=== PATIENT | male | born 1990 | race Caucasian/White ===

== ENCOUNTER 2017-08-06 23:45 | Emergency (ER) | payer SELFPAY ==
[~2017-08-06] VITALS: Ht 175.3 cm; Wt 80.0 kg
[2017-08-06 23:53] VITALS: BP 134/62; PULSE 110; RESP 16; TEMP 98.7; O2SAT 96
[2017-08-07 02:39] VITALS: BP 134/63; PULSE 102; RESP 18; O2SAT 100
[2017-08-07 02:56] LABS: AUTOMATED NEUTROPHIL # 7.7 TH/MM3 (1.8-7.7); BASOPHIL # 0.1 TH/MM3 (0-0.2); BASOPHIL % 0.5 % (0.0-2.0); EOSINOPHIL % 0.3 % (0.0-4.0); HEMATOCRIT 41.3 % (39.0-51.0); HEMOGLOBIN 14.7 GM/DL (13.0-17.0); LYMPH % 20.8 % (9.0-44.0); LYMPHOCYTE # 2.2 TH/MM3 (1.0-4.8); MEAN CELL VOLUME 90.1 FL (80.0-100.0); MEAN CORPUSCULAR HEMOGLOBIN 32.2 PG (27.0-34.0); MEAN CORPUSCULAR HGB CONC 35.7 % (32.0-36.0); MEAN PLATELET VOLUME 8.1 FL (7.0-11.0); MONO % 4.6 % (0.0-8.0); MONOCYTE # 0.5 TH/MM3 (0-0.9); NEUT % 73.8 % (16.0-70.0); PLATELET COUNT 233 TH/MM3 (150-450); RED BLOOD COUNT 4.58 MIL/MM3 (4.50-5.90); RED CELL DISTRIBUTION WIDTH 13.2 % (11.6-17.2); WHITE BLOOD COUNT 10.4 TH/MM3 (4.0-11.0)
[2017-08-07 03:10] LABS: ALBUMIN 4.6 GM/DL (3.4-5.0); ALT (GPT) 35 U/L (12-78); AST (GOT) 17 U/L (15-37); BICARBONATE 31.3 MEQ/L (21.0-32.0); BLOOD UREA NITROGEN 12 MG/DL (7-18); CALCIUM 9.2 MG/DL (8.5-10.1); CHLORIDE 103 MEQ/L (98-107); CREATININE 0.96 MG/DL (0.60-1.30); GLOMERULAR FILTRATION RATE 94 ML/MIN (>89); GLUCOSE,RANDOM 105 MG/DL (74-106); SODIUM (NA) 142 MEQ/L (136-145)
[2017-08-07 03:12] LABS: ALKALINE PHOSPHATASE 83 U/L (45-117); TOTAL BILIRUBIN ADULT 0.3 MG/DL (0.2-1.0); TOTAL PROTEIN 8.5 GM/DL (6.4-8.2)
[2017-08-07 03:18] LABS: ACETAMINOPHEN LESS THAN 2.0 MCG/ML (10.0-30.0)
--- NOTE | 2017-08-07 04:23 | PD ---
HPI Chief Complaint: Suicide Ideation/Attempt Time Seen by Provider: 03:40 Travel History International Travel<30 days: No Contact w/Intl Traveler<30days: No Traveled to known affect area: No History of Present Illness HPI 27-year-old male presents voluntarily requesting psychiatric evaluation. Reports that he was recently discharged from detoxification from heroin addiction. He reports that he was at home today and he found some old heroin and he used it. Afterwards he reports that he was contemplating suicide and his drove him here for further evaluation. He denies any alcohol use. He denies any homicidal ideation, auditory or visual hallucinations. He has no other complaints at this time. [facility] Past Medical History Medical History: Denies Significant Hx Diminished Hearing: No Tetanus Vaccination: Unknown Influenza Vaccination: No Past Surgical History Surgical History: No Previous Surgery Social History Alcohol Use: No Tobacco Use: Yes Substance Use: Yes (herion) Allergies-Medications (Allergen,Severity, Reaction): Coded Allergies: clarithromycin (Verified Allergy, Severe, 08/06/17) HIVES Reported Meds & Prescriptions Reported Meds & Active Scripts Active No Active Prescriptions or Reported Medications Review of Systems Except as stated in HPI: all other systems reviewed are Neg Physical Exam Narrative GENERAL: Well-developed well-nourished male who is sleeping on initial examination, easily arousable. SKIN: Warm and dry. HEAD: Atraumatic. Normocephalic. EYES: Pupils equal and round. No scleral icterus. No injection or drainage. ENT: No nasal bleeding or discharge. Mucous membranes pink and moist. NECK: Trachea midline. No JVD. CARDIOVASCULAR: Regular rate and rhythm. No murmur appreciated. RESPIRATORY: No accessory muscle use. Clear to auscultation. Breath sounds equal bilaterally. GASTROINTESTINAL: Abdomen soft, non-tender, nondistended. Hepatic and splenic margins not palpable. MUSCULOSKELETAL: No obvious deformities. No clubbing. No cyanosis. No edema. NEUROLOGICAL: Awake and alert. No obvious cranial nerve deficits. Motor grossly within normal limits. Normal speech. PSYCHIATRIC: Appropriate mood and affect; insight and judgment normal. Data Data Last Documented VS Vital Signs Date Time Temp Pulse Resp B/P (MAP) Pulse Ox O2 Delivery O2 Flow Rate FiO2 08/07/17 02:39 102 18 134/63 (86) 100 Room Air 08/06/17 23:53 98.7 Orders Orders Complete Blood Count With Diff (08/07/17 02:33) Comprehensive Metabolic Panel (08/07/17 02:33) Psych Screen (08/07/17 02:33) Drug Screen, Random Urine (08/07/17 02:33) Alcohol (Ethanol) (08/07/17 02:33) Salicylates (Aspirin) (08/07/17 02:33) Tylenol (Acetaminophen) (08/07/17 02:33) Potassium Chloride (Kcl) (08/07/17 04:30) Labs Laboratory Tests Test 08/07/17 02:45 White Blood Count 10.4 TH/MM3 Red Blood Count 4.58 MIL/MM3 Hemoglobin 14.7 GM/DL Hematocrit 41.3 % Mean Corpuscular Volume 90.1 FL Mean Corpuscular Hemoglobin 32.2 PG Mean Corpuscular Hemoglobin Concent 35.7 % Red Cell Distribution Width 13.2 % Platelet Count 233 TH/MM3 Mean Platelet Volume 8.1 FL Neutrophils (%) (Auto) 73.8 % Lymphocytes (%) (Auto) 20.8 % Monocytes (%) (Auto) 4.6 % Eosinophils (%) (Auto) 0.3 % Basophils (%) (Auto) 0.5 % Neutrophils # (Auto) 7.7 TH/MM3 Lymphocytes # (Auto) 2.2 TH/MM3 Monocytes # (Auto) 0.5 TH/MM3 Eosinophils # (Auto) 0.0 TH/MM3 Basophils # (Auto) 0.1 TH/MM3 CBC Comment DIFF FINAL Differential Comment Blood Urea Nitrogen 12 MG/DL Creatinine 0.96 MG/DL Random Glucose 105 MG/DL Total Protein 8.5 GM/DL Albumin 4.6 GM/DL Calcium Level 9.2 MG/DL Alkaline Phosphatase 83 U/L Aspartate Amino Transf (AST/SGOT) 17 U/L Alanine Aminotransferase (ALT/SGPT) 35 U/L Total Bilirubin 0.3 MG/DL Sodium Level 142 MEQ/L Potassium Level 3.2 MEQ/L Chloride Level 103 MEQ/L Carbon Dioxide Level 31.3 MEQ/L Anion Gap 8 MEQ/L Estimat Glomerular Filtration Rate 94 ML/MIN Salicylates Level 2.0 MG/DL Acetaminophen Level LESS THAN 2.0 MCG/ML Ethyl Alcohol Level LESS THAN 3 MG/DL MDM Medical Decision Making Medical Screen Exam Complete: Yes Emergency Medical Condition: Yes Medical Record Reviewed: Yes Differential Diagnosis Substance-induced mood disorder, adjustment reaction, major depressive disorder , acute psychosis Narrative Course 27-year-old male presents voluntarily requesting psychiatric evaluation of suicidal ideations. Mental health screening discussed with the patient. Psychiatric screen ordered. The patient's potassium level slightly low, oral potassium chloride has been ordered. He is medically for psychiatric disposition. Diagnosis Primary Impression: Medical clearance for psychiatric admission Scripts No Active Prescriptions or Reported Meds Butch Appiah Aug 07, 2017 04:23
[2017-08-07] MEDS ORDERED: POTASSIUM CHLORIDE 20 MEQ CONTROLLED RELEASE TAB PO ONE (04:30)
[2017-08-07 07:54] VITALS: BP 102/51; PULSE 68; RESP 17; O2SAT 100
--- NOTE | 2017-08-07 12:22 | PD ---
History of Present Illness Chief Complaint: Suicide Ideation/Attempt Time Seen by Provider: 12:00 Travel History International Travel<30 Days: No Contact w/Intl Traveler<30days: No Known affected area: No Legal Status Legal Status: Voluntary History of Present Illness: History of Present Illness HPI 27-year-old, male, living with his and her parents, with no previous psychiatric history, history of substance use disorder, more specifically IV heroin and crack use, presents voluntarily requesting psychiatric evaluation. Reports that he was recently discharged from [facility] on August 04, for treatment of heroin addiction. He reports that he was at home today and he found some old heroin and he used it. Afterwards he reports that he was contemplating suicide and his drove him here for further evaluation. The patient did not make any attempt to harm himself. EMR is reviewed. No previous contact with [facility]. Patient is seen, he is awake, alert, oriented. Dressed in hospital gown with appropriate hygiene and grooming. His speech is clear, logical, normal rate and tone. Mood is euthymic There is no evidence of any hallucinations, no delusions and no paranoia. He states that he had been feeling anxious due to his behaviors which include his continued drug use. He also states that he was feeling " guilt and shame" over his relapse. " I said I wanted to kill myself in middle of argument with my ." He denies current suicidal or homicidal ideation, intent or plan. The patient states that he is ready to seek substance use treatment again and that he has already made calls to [facility] and he will be getting a bed there once it becomes available. PFSH Past Medical History Medical History: Denies Significant Hx Diminished Hearing: No Tetanus Vaccination: Unknown Influenza Vaccination: No Past Surgical History Surgical History: No Previous Surgery Psychiatric History Psychiatric History Hx Psychiatric Treatment: No previous psychiatric history. No previous suicide attempts. History of Inpatient Treatment: No Guns or firearms in home: No Social History for 7 years. Has a son who is 6-month-old. He is unemployed. Lives with his , his son and her parents. Hx Alcohol Use: No Hx Tobacco Use: Yes Hx Substance Use: Yes (herion) Substance Use Type: Crack, Heroin Hx of Substance Use Treatment: Yes (recently discharge from [facility] detox.) Family Psychiatric History Negative Allergies-Medications (Allergen,Severity, Reaction): Coded Allergies: clarithromycin (Verified Allergy, Severe, 08/06/17) HIVES Reported Meds & Prescriptions Reported Meds & Active Scripts Active No Active Prescriptions or Reported Medications Review of Systems Psychiatric: DENIES: Anxiety, Confusion, Mood changes, Depression, Hallucinations, Agitation, Suicidal Ideation, Homicidal Ideation, Delusions Except as stated in HPI: all other systems reviewed are Neg Mental Status Examination Appearance: Appropriate Consciousness: Alert Orientation: x4 Motor Activity: Normal gait Speech: Unremarkable Language: Adequate Fund of Knowledge: Adequate Attention and Concentration: Adequate Memory: Unremarkable Mood: Appropriate Affect: Appropriate Thought Process & Associations: Intact, Logical, Goal directed Thought Content: Appropriate Hallucination Type: None Suicidal Ideation: No Suicidal Plan: No Suicidal Intention: No Homicidal Ideation: No Homicidal Plan: No Homicidal Intention: No Insight: Fair Judgment: Impulsive MDM Medical Decision Making Medical Record Reviewed: Yes Assessment/Plan 27-year-old, male, living with his and her parents, with no previous psychiatric history, history of substance use disorder, more specifically IV heroin and crack use, presents voluntarily requesting psychiatric evaluation. Reports that he was recently discharged from [facility] on August 04, for treatment of heroin addiction. He reports that he was at home today and he found some old heroin and he used it. Afterwards he reports that he was contemplating suicide and his drove him here for further evaluation. The patient did not make any attempt to harm himself. Patient at this time is requesting treatment for his continued use of substances. He has already made necessary calls to [facility] and plans on being admitted again there once a bed becomes available. I have provided him with resources here including [facility] outpatient treatment for substance abuse. He accepted the referrals. At this time the patient does not present any evidence of unstable mental illness. This is substance use disorder. He is asking for help and has been making the calls to get the help he needs. The patient does not meet criteria for inpatient psychiatric treatment and wants to be discharge. Psychiatrically clear for discharge from the ED. Orders Orders Complete Blood Count With Diff (08/07/17 02:33) Comprehensive Metabolic Panel (08/07/17 02:33) Psych Screen (08/07/17 02:33) Drug Screen, Random Urine (08/07/17 02:33) Alcohol (Ethanol) (08/07/17 02:33) Salicylates (Aspirin) (08/07/17 02:33) Tylenol (Acetaminophen) (08/07/17 02:33) Potassium Chloride (Kcl) (08/07/17 04:30) Diet Regular Basic (08/07/17 Breakfast) Results Vital Signs Date Time Temp Pulse Resp B/P (MAP) Pulse Ox O2 Delivery O2 Flow Rate FiO2 08/07/17 07:54 68 17 102/51 (68) 100 Room Air 08/07/17 02:39 102 18 134/63 (86) 100 Room Air 08/06/17 23:53 98.7 110 16 134/62 (86) 96 Laboratory Tests Test 08/07/17 02:45 08/07/17 06:00 White Blood Count 10.4 Red Blood Count 4.58 Hemoglobin 14.7 Hematocrit 41.3 Mean Corpuscular Volume 90.1 Mean Corpuscular Hemoglobin 32.2 Mean Corpuscular Hemoglobin Concent 35.7 Red Cell Distribution Width 13.2 Platelet Count 233 Mean Platelet Volume 8.1 Neutrophils (%) (Auto) 73.8 Lymphocytes (%) (Auto) 20.8 Monocytes (%) (Auto) 4.6 Eosinophils (%) (Auto) 0.3 Basophils (%) (Auto) 0.5 Neutrophils # (Auto) 7.7 Lymphocytes # (Auto) 2.2 Monocytes # (Auto) 0.5 Eosinophils # (Auto) 0.0 Basophils # (Auto) 0.1 CBC Comment DIFF FINAL Differential Comment Blood Urea Nitrogen 12 Creatinine 0.96 Random Glucose 105 Total Protein 8.5 Albumin 4.6 Calcium Level 9.2 Alkaline Phosphatase 83 Aspartate Amino Transf (AST/SGOT) 17 Alanine Aminotransferase (ALT/SGPT) 35 Total Bilirubin 0.3 Sodium Level 142 Potassium Level 3.2 Chloride Level 103 Carbon Dioxide Level 31.3 Anion Gap 8 Estimat Glomerular Filtration Rate 94 Salicylates Level 2.0 Acetaminophen Level LESS THAN 2.0 Ethyl Alcohol Level LESS THAN 3 Urine Opiates Screen POS Urine Barbiturates Screen NEG Urine Amphetamines Screen NEG Urine Benzodiazepines Screen NEG Urine Cocaine Screen NEG Urine Cannabinoids Screen NEG Diagnosis Primary Impression: Medical clearance for psychiatric admission Additional Impression: Opiate dependence Psychiatrically Cleared: Yes Med/ Other Pt Specific Info: No Meds Exist/No RX given Prescriptions No Active Prescriptions or Reported Meds Disposition: 01 DISCHARGE HOME Condition: Stable Problem Qualifiers Jordyn Wilde Aug 07, 2017 12:22
--- NOTE | 2017-08-07 12:29 | PD ---
Physical Exam Date Seen by Provider: Aug 07, 2017 Time Seen by Provider: 12:26 Narrative 27-year-old male previously medically cleared for voluntary psychiatric evaluation, was seen by psychiatric staff and deemed psychiatrically stable for discharge. Patient is medically stable at this time. Plan is for the patient to follow-up with [facility], and eventually [facility] in [place]. Data Data Last Documented VS Vital Signs Date Time Temp Pulse Resp B/P (MAP) Pulse Ox O2 Delivery O2 Flow Rate FiO2 08/07/17 07:54 68 17 102/51 (68) 100 Room Air 08/06/17 23:53 98.7 Orders Orders Complete Blood Count With Diff (08/07/17 02:33) Comprehensive Metabolic Panel (08/07/17 02:33) Psych Screen (08/07/17 02:33) Drug Screen, Random Urine (08/07/17 02:33) Alcohol (Ethanol) (08/07/17 02:33) Salicylates (Aspirin) (08/07/17 02:33) Tylenol (Acetaminophen) (08/07/17 02:33) Potassium Chloride (Kcl) (08/07/17 04:30) Diet Regular Basic (08/07/17 Breakfast) Labs Laboratory Tests Test 08/07/17 02:45 08/07/17 06:00 White Blood Count 10.4 TH/MM3 Red Blood Count 4.58 MIL/MM3 Hemoglobin 14.7 GM/DL Hematocrit 41.3 % Mean Corpuscular Volume 90.1 FL Mean Corpuscular Hemoglobin 32.2 PG Mean Corpuscular Hemoglobin Concent 35.7 % Red Cell Distribution Width 13.2 % Platelet Count 233 TH/MM3 Mean Platelet Volume 8.1 FL Neutrophils (%) (Auto) 73.8 % Lymphocytes (%) (Auto) 20.8 % Monocytes (%) (Auto) 4.6 % Eosinophils (%) (Auto) 0.3 % Basophils (%) (Auto) 0.5 % Neutrophils # (Auto) 7.7 TH/MM3 Lymphocytes # (Auto) 2.2 TH/MM3 Monocytes # (Auto) 0.5 TH/MM3 Eosinophils # (Auto) 0.0 TH/MM3 Basophils # (Auto) 0.1 TH/MM3 CBC Comment DIFF FINAL Differential Comment Blood Urea Nitrogen 12 MG/DL Creatinine 0.96 MG/DL Random Glucose 105 MG/DL Total Protein 8.5 GM/DL Albumin 4.6 GM/DL Calcium Level 9.2 MG/DL Alkaline Phosphatase 83 U/L Aspartate Amino Transf (AST/SGOT) 17 U/L Alanine Aminotransferase (ALT/SGPT) 35 U/L Total Bilirubin 0.3 MG/DL Sodium Level 142 MEQ/L Potassium Level 3.2 MEQ/L Chloride Level 103 MEQ/L Carbon Dioxide Level 31.3 MEQ/L Anion Gap 8 MEQ/L Estimat Glomerular Filtration Rate 94 ML/MIN Salicylates Level 2.0 MG/DL Acetaminophen Level LESS THAN 2.0 MCG/ML Ethyl Alcohol Level LESS THAN 3 MG/DL Urine Opiates Screen POS Urine Barbiturates Screen NEG Urine Amphetamines Screen NEG Urine Benzodiazepines Screen NEG Urine Cocaine Screen NEG Urine Cannabinoids Screen NEG MDM Medical Record Reviewed: Yes Supervised Visit with NORMA: Yes Narrative Course 27-year-old male previously medically cleared for voluntary psychiatric evaluation, was seen by psychiatric staff and deemed psychiatrically stable for discharge. Patient is medically stable at this time. Plan is for the patient to follow-up with [facility], and eventually [facility] in [place]. Diagnosis Primary Impression: Medical clearance for psychiatric admission Additional Impression: Opiate dependence Referrals: [facility] Patient Instructions: General Instructions Scripts No Active Prescriptions or Reported Meds Disposition: DISCHARGE HOME Condition: Stable Dorian Bradford Aug 07, 2017 12:29
[2017-08-07 12:39] VITALS: BP 126/63; PULSE 71; RESP 17; O2SAT 100
== END 2017-08-07 12:45 | disposition home or self-care (01) ==
LOC: NEPD 23:45
DX: F11.20 Opioid dependence, uncomplicated (principal); Z88.8 Allergy status to other drugs, medicaments and biological substances; Z72.0 Tobacco use
CPT/HCPCS: 80053; 80307; 85025; 99283